=== PATIENT | female | born 1990 | race Caucasian/White ===

== ENCOUNTER 2020-06-04 03:36 | Observation (INO) | payer MEDICAID ==
[~2020-06-04] VITALS: Ht 162.6 cm; Wt 72.6 kg
[~2020-06-04 03:36] MED LIST: ALBUTEROL
[2020-06-04] MEDS ORDERED: TERBUTALINE SULFATE 1MG/ML VIAL SUBCUT PRN (04:45)
[2020-06-04] MEDS ORDERED: LACTATED RINGERS 1,000 ML IV SCH (04:45)
[2020-06-04 05:21] LABS: CLARITY URINE CLOUDY (CLEAR); COLOR URINE DK YELLOW (YELLOW); KETONES URINE 4+ (NEGATIVE); LEUKOCYTE ESTERASE URINE TRACE (NEGATIVE); NITRITE URINE NEGATIVE (NEGATIVE); OCCULT BLOOD URINE NEGATIVE (NEGATIVE); PROTEIN URINE TRACE (NEGATIVE); SPECIFIC GRAVITY URINE 1.028 (1.005-1.030)
[2020-06-04] MEDS ORDERED: PNV1TABL76 MT (06:48)
[2020-06-04] MEDS ORDERED: LEVE500V IV (06:48)
== END 2020-06-04 08:15 | disposition home or self-care (01) ==
LOC: 8 EST LDRP 03:36
PROVIDERS: ADMIT Obstetrics & Gynecology; ATTEND Obstetrics & Gynecology
DX: O26.893 Other specified pregnancy related conditions, third trimester (principal); O62.9 Abnormality of forces of labor, unspecified; O99.343 Other mental disorders complicating pregnancy, third trimester; R10.30 Lower abdominal pain, unspecified; O99.513 Diseases of the respiratory system complicating pregnancy, third trimester; R51.9 Headache, unspecified; F32.9 Major depressive disorder, single episode, unspecified; J45.909 Unspecified asthma, uncomplicated; Z3A.33 33 weeks gestation of pregnancy
CPT/HCPCS: 59025; 76805; 76817; 81003; 82731; 96372; G0378; J3105; 99281

== ENCOUNTER 2020-06-05 02:34 | Observation (INO) | payer MEDICAID ==
[~2020-06-05] VITALS: Ht 162.6 cm; Wt 72.6 kg
[~2020-06-05 02:34] MED LIST changes: +LEVE500V IV; +PNV1TABL76 MT
[2020-06-05] MEDS ORDERED: LACTATED RINGERS 1,000 ML IV SCH (04:15)
[2020-06-05 05:24] LABS: CLARITY URINE CLEAR (CLEAR); COLOR URINE DARK YELLOW (YELLOW); KETONES URINE TRACE (NEGATIVE); LEUKOCYTE ESTERASE URINE NEGATIVE (NEGATIVE); NITRITE URINE NEGATIVE (NEGATIVE); OCCULT BLOOD URINE TRACE (NEGATIVE); PROTEIN URINE TRACE (NEGATIVE); SPECIFIC GRAVITY URINE 1.037 (1.005-1.030)
[2020-06-05 05:44] LABS: *BARBITURATES SCREEN URINE NEGATIVE (NEGATIVE); *BENZODIAZEPINES SCREEN URINE NEGATIVE (NEGATIVE); *COCAINE SCREEN URINE NEGATIVE (NEGATIVE)
[2020-06-05 05:45] LABS: *AMPHETAMINES SCREEN URINE PRESUMTIVE POSITIVE (NEGATIVE); CANNABINOID URINE SCREEN PRESUMTIVE POSITIVE (NEGATIVE); METHADONE URINE SCREEN NEGATIVE (NEGATIVE); OPIATES URINE SCREEN NEGATIVE (NEGATIVE); PHENCYCLIDINE URINE SCREEN NEGATIVE (NEGATIVE)
[2020-06-05] MEDS: TERBUTALINE SULFATE 1MG/ML VIAL SUBCUT PRN ×2 (06:08→06:31)
== END 2020-06-05 08:30 | disposition home or self-care (01) ==
LOC: 8 EST LDRP 02:34
PROVIDERS: ADMIT Specialist; ATTEND Specialist
DX: O62.9 Abnormality of forces of labor, unspecified (principal); O99.353 Diseases of the nervous system complicating pregnancy, third trimester; G40.909 Epilepsy, unspecified, not intractable, without status epilepticus; O99.513 Diseases of the respiratory system complicating pregnancy, third trimester; J45.909 Unspecified asthma, uncomplicated; Z3A.33 33 weeks gestation of pregnancy
CPT/HCPCS: 76815; 76818; 80305; 80349; 80359; 81003; 96360; 96361; 96372; G0378; J3105; 99281

== ENCOUNTER 2022-07-06 01:04 | Emergency (ER) | payer MEDICAID, OTHER ==
[~2022-07-06] VITALS: Ht 162.6 cm; Wt 62.0 kg
[2022-07-06] MEDS ORDERED: LEVETIRACETAM 500MG/5ML CUP PO ONE (01:15)
[2022-07-06] MEDS ORDERED: LEVETIRACETAM 500MG/5ML CUP PO NR (02:00)
[2022-07-06 02:58] LABS: BASOPHILS % 2.3 % (0.0-2.0); EOSINOPHILS % 4.6 % (0.0-5.0); HEMATOCRIT. 31.1 % (36.0-48.0); HEMOGLOBIN. 9.6 g/dL (12.0-16.0); LYMPHOCYTES % 41.8 % (20.0-50.0); MEAN CORPUSCULAR HEMOGLOBIN 22.1 pg (28.0-32.0); MEAN CORPUSCULAR VOLUME 71.9 fL (81.0-99.0); MEAN PLATELET VOLUME 8.7 fl (7.4-10.4); MONOCYTES % 11.7 % (2.0-8.0); NEUTROPHILS % 39.6 % (40.0-76.0); PLATELET 491 x1000/uL (130-400); RED BLOOD CELL COUNT 4.33 mill/uL (4.2-5.4); RED CELL DISTRIBUTION WIDTH 19.8 % (11.6-14.6)
[2022-07-06 03:03] LABS: CHLORIDE 108 mEq/L (98-107)
[2022-07-06 03:10] LABS: ETHANOL BLOOD < 10 mg/dL
[2022-07-06 03:12] LABS: HCG SCREEN NEGATIVE
[2022-07-06] MEDS ORDERED: LEVE1000 MT (03:13)
[2022-07-06 09:23] LABS: CLARITY URINE CLOUDY (CLEAR); COLOR URINE ORANGE (YELLOW); KETONES URINE NEGATIVE (NEGATIVE); LEUKOCYTE ESTERASE URINE 1+ (NEGATIVE); NITRITE URINE NEGATIVE (NEGATIVE); OCCULT BLOOD URINE 3+ (NEGATIVE); PROTEIN URINE 1+ (NEGATIVE); SPECIFIC GRAVITY URINE 1.022 (1.005-1.030)
[2022-07-06 09:51] LABS: *BARBITURATES SCREEN URINE NEGATIVE (NEGATIVE); *BENZODIAZEPINES SCREEN URINE NEGATIVE (NEGATIVE); *COCAINE SCREEN URINE NEGATIVE (NEGATIVE); METHADONE URINE SCREEN NEGATIVE (NEGATIVE); OPIATES URINE SCREEN NEGATIVE (NEGATIVE); PHENCYCLIDINE URINE SCREEN NEGATIVE (NEGATIVE)
[2022-07-06 10:01] LABS: *AMPHETAMINES SCREEN URINE PRESUMTIVE POSITIVE (NEGATIVE); CANNABINOID URINE SCREEN PRESUMTIVE POSITIVE (NEGATIVE)
[2022-07-06] MEDS: OLANZAPINE 5MG TABLET ODT PO SCH ×2 (12:01→18:31)
[2022-07-07] MEDS: OLANZAPINE 5MG TABLET ODT PO SCH ×2 (09:00→17:16)
[2022-07-08] MEDS: OLANZAPINE 5MG TABLET ODT PO SCH ×2 (09:39→17:00)
[2022-07-08 17:30] VITALS: BP 107/52
[2022-07-08] MEDS ORDERED: CEPH500T MT (18:44)
== END 2022-07-08 19:13 | disposition home or self-care (01) ==
LOC: ER 01:04
DX: R56.9 Unspecified convulsions (principal); J45.909 Unspecified asthma, uncomplicated; F15.10 Other stimulant abuse, uncomplicated; Z86.59 Personal history of other mental and behavioral disorders; Z20.822 Contact with and (suspected) exposure to COVID-19
CPT/HCPCS: 36415; 71045; 80053; 80305; 80307; 80320; 80329; 81003; 83690; 84703; 85025; 87426; 99285; C9803; G0480

== ENCOUNTER 2023-12-28 13:54 | Emergency (ER) | payer MEDICAID, OTHER ==
[~2023-12-28] VITALS: Ht 160 cm; Wt 70.0 kg
[~2023-12-28 13:54] MED LIST changes: +CEPH500T MT; +LEVE1000 MT
[2023-12-28 13:58] VITALS: O2SAT 99
[2023-12-28] MEDS ORDERED: ACETAMINOPHEN 325MG TABLET PO ONE (18:30)
[2023-12-28 19:10] LABS: BASOPHILS % 1.2 % (0.0-2.0); EOSINOPHILS % 3.1 % (0.0-5.0); HEMATOCRIT. 30.4 % (36.0-48.0); HEMOGLOBIN. 9.5 g/dL (12.0-16.0); LYMPHOCYTES % 49.9 % (20.0-50.0); MEAN CORPUSCULAR HEMOGLOBIN 25.2 pg (28.0-32.0); MEAN CORPUSCULAR HGB CONC 31.2 g/dL (31.0-37.0); MEAN PLATELET VOLUME 8.6 fl (7.4-10.4); MONOCYTES % 11.8 % (2.0-8.0); PLATELET 343 x1000/uL (130-400); RED BLOOD CELL COUNT 3.75 mill/uL (4.2-5.4); RED CELL DISTRIBUTION WIDTH 17.1 % (11.6-14.6); WHITE BLOOD COUNT 4.6 x1000/uL (4.5-11.0)
[2023-12-28 19:21] LABS: CHLORIDE 109 mEq/L (98-107); POTASSIUM 3.6 mEq/L (3.5-5.1); SODIUM 139 mEq/L (136-145)
[2023-12-28 19:22] LABS: CARBON DIOXIDE 27 mEq/L (21-32)
[2023-12-28 19:27] LABS: CREATININE 0.7 mg/dL (0.6-1.0); GLUCOSE 97 mg/dL (70-105)
[2023-12-28 19:28] LABS: UREA NITROGEN BLOOD 9 mg/dL (9-23)
[2023-12-28 19:29] LABS: ALANINE AMINOTRANSFERASE 48 IU/L (10-49); ALBUMIN 3.9 g/dL (3.2-4.8); ASPARTATE AMINOTRANSFERASE 32 IU/L (<34)
[2023-12-28 19:30] LABS: BILIRUBIN TOTAL 0.3 mg/dL (0.1-1.0); PROTEIN TOTAL 6.5 g/dL (6.0-8.3)
[2023-12-28 19:42] LABS: HCG SCREEN NEGATIVE
[2023-12-28 20:00] LABS: BILIRUBIN DIRECT < 0.1 mg/dL (<=3.0); TROPONIN I HIGH SENSITIVITY < 4 ng/L (3.0-34)
[2023-12-28] MEDS ORDERED: ALBU18HF2 PO (21:02)
[2023-12-28] MEDS ORDERED: METF-414 PO (21:02)
[2023-12-28] MEDS ORDERED: LEVE500T19 PO (21:02)
[2023-12-28 21:05] LABS: CLARITY URINE CLOUDY (CLEAR); COLOR URINE YELLOW (YELLOW); GLUCOSE URINE NEGATIVE (NEGATIVE); KETONES URINE NEGATIVE (NEGATIVE); LEUKOCYTE ESTERASE URINE TRACE (NEGATIVE); NITRITE URINE NEGATIVE (NEGATIVE); OCCULT BLOOD URINE NEGATIVE (NEGATIVE); PH URINE 7.5 (4.5-8.0); PROTEIN URINE NEGATIVE (NEGATIVE); SPECIFIC GRAVITY URINE 1.026 (1.005-1.030)
[2023-12-28 21:14] LABS: RBC URINE NONE SEEN /hpf (0-2); WBC URINE NONE SEEN /hpf (0-2)
[2023-12-28 21:15] LABS: BACTERIA URINE TRACE; SQUAMOUS EPITHELIAL CELL URINE FEW /lpf (RARE/1+)
[2023-12-28] MEDS ORDERED: IBUP-2028 MT (23:13)
[2023-12-28] MEDS: ACETAMINOPHEN 325MG TABLET PO NR (23:21)
[2023-12-28 23:22] VITALS: BP 127/77; PULSE 84; RESP 16; TEMP 36.78072; O2SAT 98
== END 2023-12-28 23:23 | disposition home or self-care (01) ==
LOC: ER 15:01
DX: R07.89 Other chest pain (principal); K80.20 Calculus of gallbladder without cholecystitis without obstruction; E11.9 Type 2 diabetes mellitus without complications; J45.909 Unspecified asthma, uncomplicated; F15.10 Other stimulant abuse, uncomplicated; Z79.899 Other long term (current) drug therapy
CPT/HCPCS: 36415; 71045; 74176; 80048; 80076; 81003; 81025; 84484; 84703; 85025; 93005; 99285

== ENCOUNTER 2023-12-29 05:51 | Emergency (ER) | payer OTHER ==
[~2023-12-29] VITALS: Ht 167.6 cm; Wt 64.8 kg
[~2023-12-29 05:51] MED LIST changes: +ALBU18HF2 PO; -ALBUTEROL; -CEPH500T MT; +IBUP-2028 MT; -LEVE1000 MT; +LEVE500T19 PO; -LEVE500V IV; +METF-414 PO; -PNV1TABL76 MT
[2023-12-29 06:06] VITALS: BP 107/70; RESP 16; TEMP 97.8; O2SAT 100
[2023-12-29 06:15] VITALS: PULSE 96; O2SAT 97
[2023-12-29] MEDS ORDERED: ALBUTEROL (0.083%) 2.5MG/3ML NEB HHN NR (08:17)
[2023-12-29] MEDS ORDERED: IPRATROPIUM BROMIDE (0.02%) 0.5MG/2.5ML NEB HHN NR (08:17)
[2023-12-29 08:44] LABS: BASOPHILS % 1.4 % (0.0-2.0); EOSINOPHILS % 1.5 % (0.0-5.0); HEMATOCRIT. 32.5 % (36.0-48.0); HEMOGLOBIN. 9.9 g/dL (12.0-16.0); LYMPHOCYTES % 35.4 % (20.0-50.0); MEAN CORPUSCULAR HEMOGLOBIN 25.3 pg (28.0-32.0); MEAN CORPUSCULAR HGB CONC 30.3 g/dL (31.0-37.0); MEAN CORPUSCULAR VOLUME 83.3 fL (81.0-99.0); MEAN PLATELET VOLUME 9.3 fl (7.4-10.4); MONOCYTES % 7.6 % (2.0-8.0); NEUTROPHILS % 54.1 % (40.0-76.0); PLATELET 331 x1000/uL (130-400); RED CELL DISTRIBUTION WIDTH 17.1 % (11.6-14.6); WHITE BLOOD COUNT 4.6 x1000/uL (4.5-11.0)
[2023-12-29 08:50] LABS: CHLORIDE 109 mEq/L (98-107); POTASSIUM 3.9 mEq/L (3.5-5.1); SODIUM 140 mEq/L (136-145)
[2023-12-29 08:51] LABS: CALCIUM 9.1 mg/dL (8.7-10.4); CARBON DIOXIDE 26 mEq/L (21-32)
[2023-12-29] MEDS: PREDNISONE 20MG TABLET PO NR (08:51)
[2023-12-29 08:53] LABS: HCG SCREEN NEGATIVE
[2023-12-29 08:56] LABS: CREATININE 0.6 mg/dL (0.6-1.0); GLUCOSE 79 mg/dL (70-105); UREA NITROGEN BLOOD 7 mg/dL (9-23)
[2023-12-29 08:58] LABS: ACETAMINOPHEN < 2 ug/mL (10-30)
[2023-12-29 09:00] LABS: ETHANOL BLOOD < 10 mg/dL (<10)
[2023-12-29 10:15] LABS: ALANINE AMINOTRANSFERASE 44 IU/L (10-49); ALBUMIN 4.1 g/dL (3.2-4.8); ASPARTATE AMINOTRANSFERASE 30 IU/L (<34); BILIRUBIN TOTAL 0.4 mg/dL (0.1-1.0); PROTEIN TOTAL 6.9 g/dL (6.0-8.3)
[2023-12-29 10:20] LABS: BILIRUBIN DIRECT < 0.1 mg/dL (<=3.0)
[2023-12-29 14:58] LABS: *AMPHETAMINES SCREEN URINE PRESUMPTIVE POSITIVE (NEGATIVE); *BARBITURATES SCREEN URINE NEGATIVE (NEGATIVE); *BENZODIAZEPINES SCREEN URINE NEGATIVE (NEGATIVE); *COCAINE SCREEN URINE NEGATIVE (NEGATIVE)
[2023-12-29 14:59] LABS: CANNABINOID URINE SCREEN PRESUMPTIVE POSITIVE (NEGATIVE); ECSTASY MDMA SCREEN URINE NEGATIVE (NEGATIVE); METHADONE URINE SCREEN NEGATIVE (NEGATIVE); OPIATES URINE SCREEN NEGATIVE (NEGATIVE); PHENCYCLIDINE URINE SCREEN NEGATIVE (NEGATIVE)
== END 2023-12-29 12:16 | disposition left against medical advice (07) ==
LOC: ER 05:51
DX: R45.851 Suicidal ideations (principal); J45.901 Unspecified asthma with (acute) exacerbation; E11.9 Type 2 diabetes mellitus without complications; F15.90 Other stimulant use, unspecified, uncomplicated; Z88.8 Allergy status to other drugs, medicaments and biological substances
CPT/HCPCS: 80076; 80305; 80048; 80307; 80329; 80320; 84703; 85025; 36415; 99291; J7512; G0480